=== PATIENT | female | born 1975 | race Caucasian/White ===

== ENCOUNTER 2019-07-13 19:56 | Emergency (ER) | payer MEDICAID, SELFPAY ==
[~2019-07-13] VITALS: Ht 162.6 cm; Wt 56.8 kg
[2019-07-13 20:36] LABS: BASO % 0.4 % (0.0-1.0); EOS # 0.1 10^3/uL (0.0-0.5); EOS % 2.3 % (0.0-3.0); HEMATOCRIT 35.9 % (36.0-47.0); LYMPH # 1.3 10^3/uL (1.5-5.0); LYMPH % 26.2 % (24.0-44.0); MEAN CORPUSCULAR HEMOGLOBIN 32.3 pg (27.0-33.0); MEAN CORPUSCULAR HGB CONC 33.4 g/dl (32.0-36.5); MEAN CORPUSCULAR VOLUME 96.5 fl (80.0-96.0); MONO # 0.5 10^3/uL (0.0-0.8); MONO % 9.3 % (0.0-5.0); NEUTROPHILS % 61.6 % (36.0-66.0); PLATELET COUNT, AUTOMATED 171 10^3/uL (150-450); RED BLOOD COUNT 3.72 10^6/uL (4.00-5.40); WHITE BLOOD COUNT 4.9 10^3/uL (4.0-10.0)
[2019-07-13] MEDS ORDERED: ISOVUE-370 76% 100ML VIAL (Q9967) As Ordered ONE (20:44)
[2019-07-13 21:12] LABS: ALBUMIN 3.5 GM/DL (3.2-5.2); ALT/SGPT 21 U/L (12-78); BILIRUBIN,DIRECT < 0.1 MG/DL (0.0-0.2); BILIRUBIN,TOTAL 0.2 MG/DL (0.2-1.0); LIPASE 128 U/L (73-393); TOTAL PROTEIN 7.2 GM/DL (6.4-8.2)
--- NOTE | 2019-07-13 22:06 | REPVR ---
PROCEDURE INFORMATION: Exam: CT Angiography Chest With Contrast Exam date and time: 07/13/2019 8:55 PM Clinical history: 43 years old, female; Chest pain; Type not specified; Additional info: Upper/mid-abd. Pain radiating through to back; R/O taa/aaa TECHNIQUE: Imaging protocol: Computed tomographic angiography of the chest with intravenous contrast. 3D rendering: MIP reconstructed images were created and reviewed. Radiation optimization: All CT scans at this facility use at least one of these dose optimization techniques: automated exposure control; mA and/or kV adjustment per patient size (includes targeted exams where dose is matched to clinical indication); or iterative reconstruction. Contrast material: ISOVUE 370; Contrast volume: 100 ml; Contrast route: IV; COMPARISON: No relevant prior studies available. FINDINGS: Pulmonary arteries: There is opacification of the pulmonary arteries with no evidence of pulmonary embolus. Aorta: There is opacification of the aorta which appears intact. Lungs: The lungs appear clear. Pleural space: There is no evidence of pneumothorax and no evidence of pleural effusion. Heart: The heart is normal in size and there is no pericardial effusion. Lymph nodes: Unremarkable. No enlarged lymph nodes. Bones/joints: Unremarkable. No acute fracture. Soft tissues: Unremarkable. Other findings: There are bilateral augmentation implants. IMPRESSION: 1. No evidence of pulmonary embolus. 2. Opacification of the aorta which appears normal in size and intact. Electronically signed by: Salbador Gomez On 07/13/2019 22:05:32 PM
--- NOTE | 2019-07-13 22:18 | REPVR ---
PROCEDURE INFORMATION: Exam: CT Angiography Abdomen and Pelvis With Contrast Exam date and time: 07/13/2019 8:55 PM Clinical history: 43 years old, female; Abdominal pain; Localized; Upper; Additional info: Upper/mid-abd. Pain radiating through to back; R/O taa/aaa TECHNIQUE: Imaging protocol: Computed tomographic angiography of the abdomen and pelvis with intravenous contrast material. 3D rendering: MIP reconstructed images were created and reviewed. Radiation optimization: All CT scans at this facility use at least one of these dose optimization techniques: automated exposure control; mA and/or kV adjustment per patient size (includes targeted exams where dose is matched to clinical indication); or iterative reconstruction. Contrast material: ISOVUE 370; Contrast volume: 100 ml; Contrast route: IV; COMPARISON: No relevant prior studies available. FINDINGS: VASCULATURE: Aorta: There is opacification of the aorta which appears intact. 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 There is opacification of the SMA. Renal arteries: There is opacification of the renal arteries. ABDOMEN and PELVIS: Liver: Normal appearing liver. Gallbladder and bile ducts: Normal common bile duct. The gallbladder is partially contracted. Pancreas: Normal pancreas. Spleen: Normal appearing spleen. Adrenals: Normal adrenal glands. Kidneys and ureters: There is enhancement of the kidneys. Stomach and bowel: Unremarkable. No obstruction. No mucosal thickening. Appendix: Normal sized appendix. Intraperitoneal space: There is a small amount of free fluid in the pelvis. Lymph nodes: Unremarkable. No enlarged lymph nodes. Bladder: Unremarkable. No mass. Reproductive: The uterus is prominent. The endometrium measures approximately 1.2 CM in thickness. There are prominent vessels along the margin of the uterus. Small follicular cyst of the right ovary. Bones/joints: There is moderate posterior disc protrusion L5-S1. Soft tissues: Unremarkable. IMPRESSION: 1. The aorta appears normal in size and intact. 2. 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 3. There is a small amount of free fluid in the pelvis and a probable 2 CM cyst of the right ovary. Electronically signed by: Salbador Gomez On 07/13/2019 22:17:54 PM
[2019-07-13 22:30] VITALS: BP 100/62
--- NOTE | 2019-07-16 11:00 | ED PDOC ---
Post-Departure Follow-Up dr waldron and dr howell faxed formal report of cta abd/p for fu Buddy Stoddard MD Jul 16, 2019 11:00
== END 2019-07-13 22:51 | disposition home or self-care (01) ==
LOC: M ED 19:56
DX: N83.201 Unspecified ovarian cyst, right side (principal); J45.909 Unspecified asthma, uncomplicated; K21.9 Gastro-esophageal reflux disease without esophagitis; Z88.1 Allergy status to other antibiotic agents
CPT/HCPCS: 36415; 71275; 74174; 80047; 80076; 83690; 85025; 93041; 99284; Q9967

== ENCOUNTER → 2019-11-11 | Outpatient (CLI) | payer OTHER ==
[2019-11-11 14:09] LABS: BASO % 0.4 % (0.0-1.0); EOS # 0.1 10^3/uL (0.0-0.5); HEMATOCRIT 36.2 % (36.0-47.0); HEMOGLOBIN 11.9 g/dl (12.0-15.5); LYMPH # 1.2 10^3/uL (1.5-5.0); LYMPH % 23.3 % (24.0-44.0); MEAN CORPUSCULAR HEMOGLOBIN 30.6 pg (27.0-33.0); MEAN CORPUSCULAR HGB CONC 32.9 g/dl (32.0-36.5); MEAN CORPUSCULAR VOLUME 93.1 fl (80.0-96.0); MONO # 0.3 10^3/uL (0.0-0.8); MONO % 6.5 % (0.0-5.0); NEUTROPHILS # 3.4 10^3/uL (1.5-8.5); NEUTROPHILS % 67.6 % (36.0-66.0); PLATELET COUNT, AUTOMATED 200 10^3/uL (150-450); RED BLOOD COUNT 3.89 10^6/uL (4.00-5.40); WHITE BLOOD COUNT 5.1 10^3/uL (4.0-10.0)
[2019-11-11 14:13] LABS: APPEARANCE, URINE CLEAR (CLEAR); BACTERIA, URINE AUTO 1+ (NEGATIVE); BILIRUBIN, URINE AUTO NEGATIVE (NEGATIVE); BLOOD, URINE BLOOD NEGATIVE (NEGATIVE); COLOR, URINE STRAW (YELLOW); GLUCOSE, URINE (UA) AUTO NEGATIVE (NEGATIVE); KETONE, URINE AUTO NEGATIVE (NEGATIVE); LEUKOCYTE ESTERASE, URINE AUTO NEGATIVE (NEGATIVE); MUCUS, URINE SMALL (NEGATIVE); NITRITE, URINE AUTO NEGATIVE (NEGATIVE); PROTEIN, URINE AUTO NEGATIVE (NEGATIVE); RBC, URINE AUTO 3 /HPF (0-3); SPECIFIC GRAVITY URINE AUTO 1.003 (1.002-1.035); SQUAMOUS EPITHELIAL CELL UR AU 2 /HPF (0-6); TRANSITIONAL EPITHELIAL AUTO <1 /HPF; UROBILINOGEN, URINE AUTO 0.2 mg/dL (0.0-2.0); WBC, URINE AUTO 0 /HPF (0-3)
[2019-11-11 14:42] LABS: BLOOD UREA NITROGEN 10 MG/DL (7-18); CALCIUM LEVEL 8.5 MG/DL (8.5-10.1); CARBON DIOXIDE LEVEL 28 MEQ/L (21-32); CHLORIDE LEVEL 105 MEQ/L (98-107); CHOLESTEROL LEVEL 206 MG/DL (<200); CHOLESTEROL RISK RATIO 3.433 (<5); CREATININE FOR GFR 0.75 MG/DL (0.55-1.30); FERRITIN 33 NG/ML (8-252); FOLATE > 24.0 NG/ML; FREE T4 0.89 NG/DL (0.76-1.46); GLOMERULAR FILTRATION RATE > 60.0 (>58); GLUCOSE, FASTING 78 MG/DL (70-100); HDL CHOLESTEROL 60 MG/DL (>40); IRON (FE) 44 UG/DL (50-170); LDL CHOLESTEROL 132 MG/DL (<100); NON-HDL-C 146 MG/DL; PERCENT SATURATION 13.5 % (13.2-45.0); POTASSIUM SERUM 3.8 MEQ/L (3.5-5.1); SODIUM LEVEL 138 MEQ/L (136-145); TOTAL IRON BINDING CAPACITY 325 UG/DL (250-450); TRIGLYCERIDES LEVEL 70 MG/DL (<150); VITAMIN B12 LEVEL 386 PG/ML
== END ==
LOC: M LAB 12:45
PROVIDERS: ATTEND Registered Nurse Community Health
DX: Z13.220 Encounter for screening for lipoid disorders (principal)

== ENCOUNTER 2024-03-01 18:42 | Emergency (ER) | payer OTHER, SELFPAY ==
[~2024-03-01] VITALS: Ht 162.6 cm; Wt 63.6 kg
[2024-03-01 19:36] LABS: BASO % 0.5 % (0.0-1.0); EOS # 0.1 10^3/uL (0.0-0.5); EOS % 0.9 % (0.0-3.0); HEMATOCRIT 30.7 % (36.0-47.0); HEMOGLOBIN 9.4 g/dl (12.0-15.5); LYMPH # 1.1 10^3/uL (1.5-5.0); LYMPH % 17.6 % (24.0-44.0); MEAN CORPUSCULAR HEMOGLOBIN 25.3 pg (27.0-33.0); MEAN CORPUSCULAR HGB CONC 30.6 g/dl (32.0-36.5); MEAN CORPUSCULAR VOLUME 82.5 fl (80.0-96.0); MONO # 0.4 10^3/uL (0.0-0.8); MONO % 6.3 % (2.0-8.0); NEUTROPHILS # 4.7 10^3/uL (1.5-8.5); NEUTROPHILS % 74.5 % (36.0-66.0); PLATELET COUNT, AUTOMATED 267 10^3/uL (150-450); RED BLOOD COUNT 3.72 10^6/uL (4.00-5.40); WHITE BLOOD COUNT 6.4 10^3/uL (4.0-10.0)
[2024-03-01 20:06] LABS: BLOOD UREA NITROGEN 14 MG/DL (9-23); CALCIUM LEVEL 8.6 MG/DL (8.5-10.1); CARBON DIOXIDE LEVEL 26 MMOL/L (20-31); CHLORIDE LEVEL 108 MMOL/L (98-107); CPK CREATINE PHOSPHOKINASE 59 U/L (34-145); CREATININE FOR GFR 0.68 MG/DL (0.55-1.30); GLOMERULAR FILTRATION RATE > 60.0 (>58); GLUCOSE, FASTING 124 MG/DL (60-100); POTASSIUM SERUM 4.4 MMOL/L (3.5-5.1); SODIUM LEVEL 138 MMOL/L (136-145)
[2024-03-01 20:10] LABS: CK-MB VALUE MASS < 1.0 NG/ML (<3.6); MB/CK RELATIVE INDEX 1.69 (< OR =4)
[2024-03-01] MEDS: ONDANSETRON 4MG 2ML VIAL IV ONE (20:20)
[2024-03-01] MEDS: ASPIRIN 81MG CHEW TABLET PO ONE (20:20)
[2024-03-01] MEDS: MORPHINE 4 MG/ML 1ML VIAL IV PRN (20:21)
[2024-03-01] MEDS ORDERED: ISOVUE-370 76% 100ML VIAL As Ordered ONE (20:34)
[2024-03-01 21:10] LABS: CK-MB VALUE MASS < 1.0 NG/ML (<3.6)
[2024-03-01 21:15] VITALS: TEMP 98
[2024-03-01 21:17] LABS: CPK CREATINE PHOSPHOKINASE 70 U/L (34-145); MB/CK RELATIVE INDEX 1.42 (< OR =4)
[2024-03-01 21:30] VITALS: BP 102/58; O2SAT 99
[2024-03-01] MEDS ORDERED: PROT1TAB2 PO (22:15)
[2024-03-01] MEDS: PANTOPRAZOLE 40MG VIAL IV ONE (22:27)
== END 2024-03-01 22:28 | disposition home or self-care (01) ==
LOC: M ED 18:42
DX: Q40.1 Congenital hiatus hernia (principal); F10.10 Alcohol abuse, uncomplicated; I45.10 Unspecified right bundle-branch block; Z88.1 Allergy status to other antibiotic agents
CPT/HCPCS: 71045; 71275; 80048; 82550; 82553; 84484; 85025; 85730; 93005; 93041; 94760; 96374; 96375; 99285; C9113; J2405; Q9967